=== PATIENT | female | born 1985 | race Caucasian/White ===

== ENCOUNTER 2016-11-14 23:00 | Emergency (ER) | payer MEDICAID, OTHER ==
[2016-11-14 23:13] VITALS: BP 149/76; PULSE 68; RESP 16; TEMP 98.1; O2SAT 100
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
== END 2016-11-14 23:41 | disposition home or self-care (01) ==
LOC: H.ER 23:00
DX: L08.9 Local infection of the skin and subcutaneous tissue, unspecified (principal)

== ENCOUNTER 2017-04-21 12:53 | Emergency (ER) | payer OTHER ==
[2017-04-21 13:03] VITALS: BP 134/80; PULSE 79; RESP 20; TEMP 97.9; O2SAT 99
--- NOTE | 2017-04-21 13:18 | ED PDOC ---
HPI: CCC, URI, Sore Throat Time Seen by Provider: 04/21/17 12:59 Chief Complaint (Nursing): ENT Problem Chief Complaint (Provider): ENT Problem History Per: Patient History/Exam Limitations: no limitations Current Symptoms Are (Timing): Still Present Additional Complaint(s): 31 y/o female presents to the emergency department with a complaint of a constant sore throat, nasal congestion, and mild bilateral ear pain x2 days. Reports taking Tylenol and DayQuil for the relief of symptoms. Denies cough. PMD: Dr. Shaik Erich DIAZ Past Medical History Reviewed: Historical Data, Nursing Documentation, Vital Signs Vital Signs: Last Vital Signs Temp 97.9 F 04/21/17 13:00 Pulse 79 04/21/17 13:00 Resp 20 04/21/17 13:00 BP 134/80 04/21/17 13:00 Pulse Ox 99 04/21/17 13:31 - Medical History PMH: No Chronic Diseases - Surgical History Surgical History: No Surg Hx - Family History Family History: States: Unknown Family Hx - Social History Current smoker - smoking cessation education provided: No Alcohol: None Drugs: Denies - Immunization History Hx Tetanus Toxoid Vaccination: No Hx Influenza Vaccination: No Hx Pneumococcal Vaccination: No - Home Medications Home Medications: Ambulatory Orders Medication Instructions Recorded Acetaminophen [Tylenol] 325 mg PO Q4H 10/24/15 Ibuprofen [Motrin] 600 mg PO TID #15 tab 10/24/15 Cephalexin [cephalexin] 500 mg PO BID #20 cap 11/14/16 Mupirocin [Centany] 30 gm TP DAILY #1 oint...g. 11/14/16 Guaifenesin/Pseudoephedrne HCl 1 tab PO DAILY PRN #30 ter 04/21/17 [Mucinex D 600 mg-60 mg] Methylprednisolone [Medrol Dose 4 mg PO DAILY #21 mg 04/21/17 Pack (21 tabs)] - Allergies Allergies/Adverse Reactions: Allergies Allergy/AdvReac Type Severity Reaction Status Date / Time No Known Allergies Allergy Verified 11/14/16 23:09 Review of Systems ROS Statement: Except As Marked, All Systems Reviewed And Found Negative (As per HPI, otherwise negative) ENT: Positive for: Ear Pain (mild), Nose Congestion, Throat Pain Respiratory: Negative for: Cough Physical Exam - Reviewed Nursing Documentation Reviewed: Yes Vital Signs Reviewed: Yes - Physical Exam Appears: Positive for: Non-toxic, No Acute Distress Head Exam: Positive for: ATRAUMATIC, NORMAL INSPECTION, NORMOCEPHALIC Skin: Positive for: Normal Color, Warm, Dry ENT: Positive for: Normal ENT Inspection (b/l ears are clear), TM Is/Are (Clear) . Negative for: Pharyngeal Erythema, Tonsillar Exudate, Tonsillar Swelling Cardiovascular/Chest: Positive for: Regular Rate, Rhythm. Negative for: Murmur Respiratory: Positive for: Normal Breath Sounds. Negative for: Accessory Muscle Use, Respiratory Distress Neurologic/Psych: Positive for: Alert, Oriented (x3) - ECG O2 Sat by Pulse Oximetry: 99 (RA) Pulse Ox Interpretation: Normal Medical Decision Making Medical Decision Making: Time:1311 Initial impression: Pharyngitis Initial plan: --Motrin 600 mg PO --Reevaluation Time: 1330 Patient was given medication is the ER, feeling better, is medically stable, and requires no further treatment in the ED at this time. Patient will be discharged home with Rx for Mucinex D 600 mg-60 mg and Medrol Dose Pack 4 mg PO. Counseling was provided and all questions were answered regarding diagnosis and need for follow up with primary care doctor. There is agreement to discharge plan. Return if symptoms persist or worsen. Clinical Impression: Pharyngitis Scribe Attestation: Documented by Lydia John, acting as a scribe for Clara Hillman PA-C Provider Scribe Attestation: All medical record entries made by the Scribe were at my direction and personally dictated by me. I have reviewed the chart and agree that the record accurately reflects my personal performance of the history, physical exam, medical decision making, and the department course for this patient. I have also personally directed, reviewed, and agree with the discharge instructions and disposition. Disposition - Clinical Impression Clinical Impression: Pharyngitis - Patient ED Disposition Is Patient to be Admitted: No Counseled Patient/Family Regarding: Diagnosis, Need For Followup, Rx Given - Disposition Disposition: Routine/Home Disposition Time: 13:30 Condition: STABLE Prescriptions: Guaifenesin/Pseudoephedrne HCl [Mucinex D 600 mg-60 mg] 1 tab PO DAILY PRN #30 ter PRN Reason: congestion Methylprednisolone [Medrol Dose Pack (21 tabs)] 4 mg PO DAILY #21 mg Instructions: Pharyngitis (ED) Forms: [facility] (Pashto)
== END 2017-04-21 13:44 | disposition home or self-care (01) ==
LOC: H.ER 12:53
DX: J02.9 Acute pharyngitis, unspecified (principal)

== ENCOUNTER 2017-05-12 15:25 | Emergency (ER) | payer OTHER ==
[2017-05-12 15:31] VITALS: BP 141/75; PULSE 80; RESP 16; TEMP 98.6; O2SAT 100
--- NOTE | 2017-05-12 15:58 | ED PDOC ---
HPI: Eye Injury/Pain Time Seen by Provider: 05/12/17 15:41 Chief Complaint (Nursing): Eye Problem Chief Complaint (Provider): Eye redness and discharge History Per: Patient History/Exam Limitations: no limitations Onset/Duration Of Symptoms: Days (x4) Current Symptoms Are (Timing): Still Present Wears Contact Lens?: No Additional Complaint(s): Evelyn Almeida is a 31-year-old female who presents to the emergency department complaining of bilateral eye redness and discharge since 05/08. Patient reports symptoms have worsened over the past 2 days, and she notices crusting to both eyes in the mornings. She denies wearing contact lenses , and notes her vision has been normal. Patient tried using OTC eye drops with no improvement. PMD: Dr. Shaik Jung Past Medical History Reviewed: Historical Data, Nursing Documentation, Vital Signs Vital Signs: Last Vital Signs Temp 98.6 F 05/12/17 15:29 Pulse 80 05/12/17 15:29 Resp 16 05/12/17 15:29 BP 141/75 05/12/17 15:29 Pulse Ox 100 05/12/17 15:29 - Medical History PMH: No Chronic Diseases - Surgical History Other surgeries: Lasik eye surgery, surgical removal of ectopic x 2 - Family History Family History: States: Unknown Family Hx - Living Arrangements Living Arrangements: With Family - Social History Current smoker - smoking cessation education provided: No Alcohol: Social Drugs: Denies - Immunization History Hx Tetanus Toxoid Vaccination: No Hx Influenza Vaccination: No Hx Pneumococcal Vaccination: No - Home Medications Home Medications: Ambulatory Orders Medication Instructions Recorded Acetaminophen [Tylenol] 325 mg PO Q4H 10/24/15 Ibuprofen [Motrin] 600 mg PO TID #15 tab 10/24/15 Cephalexin [cephalexin] 500 mg PO BID #20 cap 11/14/16 Mupirocin [Centany] 30 gm TP DAILY #1 oint...g. 11/14/16 Guaifenesin/Pseudoephedrne HCl 1 tab PO DAILY PRN #30 ter 04/21/17 [Mucinex D 600 mg-60 mg] Methylprednisolone [Medrol Dose 4 mg PO DAILY #21 mg 04/21/17 Pack (21 tabs)] Tobramycin [Tobrex] 5 ml TOP QID #1 bottle 05/12/17 - Allergies Allergies/Adverse Reactions: Allergies Allergy/AdvReac Type Severity Reaction Status Date / Time No Known Allergies Allergy Verified 11/14/16 23:09 Review of Systems ROS Statement: Except As Marked, All Systems Reviewed And Found Negative Eyes: Positive for: Other (discharge and redness to both eyes). Negative for: Vision Change Physical Exam - Reviewed Nursing Documentation Reviewed: Yes Vital Signs Reviewed: Yes - Physical Exam Appears: Positive for: Well, Non-toxic, No Acute Distress Head Exam: Positive for: ATRAUMATIC, NORMAL INSPECTION, NORMOCEPHALIC Skin: Positive for: Normal Color Eye Exam: Positive for: EOMI, PERRL, Conjunctival injection (bilaterally, with scant yellow discharge noted). Negative for: Nystagmus, Periorbital swelling ( or periorbital cellulitis), Periorbital tenderness, Scleral icterus ENT: Positive for: Normal ENT Inspection Neurologic/Psych: Positive for: Alert, Oriented - ECG O2 Sat by Pulse Oximetry: 100 (RA) Pulse Ox Interpretation: Normal Medical Decision Making Medical Decision Making: Clinical Impression: 31 year old female with bilateral purulent conjunctivitis Upon provider evaluation patient is medically stable, and requires no further treatment in the ED at this time. Patient will be discharged home with Rx for Tobramycin eye drops. Counseling was provided and all questions were answered regarding diagnosis and need for follow up with ophthalmology. There is agreement to discharge plan. Return if symptoms persist or worsen. Scribe Attestation: Documented by Jessi Melgar, acting as a scribe for Clara Mujica PA-C Provider Scribe Attestation: All medical record entries made by the Scribe were at my direction and personally dictated by me. I have reviewed the chart and agree that the record accurately reflects my personal performance of the history, physical exam, medical decision making, and the department course for this patient. I have also personally directed, reviewed, and agree with the discharge instructions and disposition. Disposition - Clinical Impression Clinical Impression: Purulent conjunctivitis - Patient ED Disposition Is Patient to be Admitted: No Counseled Patient/Family Regarding: Diagnosis, Need For Followup, Rx Given - Disposition Referrals: Lucas Tomas MD [Staff Provider] - Disposition: Routine/Home Disposition Time: 16:07 Condition: STABLE Additional Instructions: Apply drops as directed. Follow-up with eye doctor for any persistent symptoms. Prescriptions: Tobramycin [Tobrex] 5 ml TOP QID #1 bottle Instructions: Conjunctivitis (ED) Forms: [facility] ([place]), [facility] ED School/Work Excuse
== END 2017-05-12 16:15 | disposition home or self-care (01) ==
LOC: H.ER 15:25
DX: H10.9 Unspecified conjunctivitis (principal)